=== PATIENT | female | born 1985 ===

== ENCOUNTER 2018-03-05 10:23 | Emergency (ER) | payer SELFPAY ==
--- NOTE | 2018-03-05 12:27 | UC ---
Respiratory Complaint HPI - HPI Summary HPI Summary: 1 WEEK OF PERSISTENT COUGH. WAS INITIALLY DRY BUT YESTERDAY STARTED BRINGING UP SOME WHITE PHLEGM. HAS SOME CHEST CONGESTION BUT NO FEVER, SORE THROAT, EAR PAIN, NAUSEA/VOMITING. UP-TO-DATE VACCINATIONS. JUST MOVED HERE FOR POSITION OF [facility] [place] [facility]. - History of Current Complaint Chief Complaint: UCRespiratory Stated Complaint: RESP COMPLAINT Time Seen by Provider: 03/05/18 11:35 Hx Obtained From: Patient Hx Last Menstrual Period: 02/21/18 Onset/Duration: Gradual Onset, Lasting Days, Still Present Timing: Constant Severity Initially: Mild Severity Currently: Mild Pain Intensity: 0 Pain Scale Used: 0-10 Numeric Character: Cough: Productive Aggravating Factors: Nothing Alleviating Factors: Nothing Associated Signs And Symptoms: Negative: Dyspnea, Fever, Chills, Wheezing - Allergies/Home Medications Allergies/Adverse Reactions: Allergies Allergy/AdvReac Type Severity Reaction Status Date / Time No Known Allergies Allergy Verified 03/05/18 10:40 PMH/Surg Hx/FS Hx/Imm Hx Previously Healthy: Yes - Surgical History Surgical History: Yes Surgery Procedure, Year, and Place: [facility] - Family History Known Family History: Positive: Hypertension - Social History Alcohol Use: Occasionally Substance Use Type: None Smoking Status (MU): Never Smoked Tobacco Review of Systems Constitutional: Negative ENT: Negative Respiratory: Cough Cardiovascular: Negative Gastrointestinal: Negative All Other Systems Reviewed And Are Negative: Yes Physical Exam Triage Information Reviewed: Yes Appearance: Well-Appearing, No Pain Distress, Well-Nourished Vital Signs: Initial Vital Signs Temp 97.9 F 03/05/18 10:37 Pulse 75 03/05/18 10:37 Resp 16 03/05/18 10:37 BP 104/72 03/05/18 10:37 Pulse Ox 100 03/05/18 10:37 Vital Signs Reviewed: Yes Eyes: Positive: Conjunctiva Clear ENT: Positive: Hearing grossly normal, Pharynx normal, TMs normal Neck: Positive: Supple, Nontender, No Lymphadenopathy Respiratory Exam: Normal Cardiovascular Exam: Normal Abdomen Description: Positive: Soft Musculoskeletal: Positive: No Edema Neurological: Positive: Alert Psychological: Positive: Age Appropriate Behavior Skin: Negative: rashes UC Diagnostic Evaluation - Laboratory O2 Sat by Pulse Oximetry: 100 Respiratory Course/Dx - Differential Dx/Diagnosis Provider Diagnoses: ACUTE BRONCHITIS Discharge - Sign-Out/Discharge Documenting (check all that apply): Patient Departure - Discharge Plan Condition: Stable Disposition: HOME Prescriptions: Benzonatate CAP* [Tessalon CAP*] 1 - 2 cap PO TID PRN #30 cap PRN Reason: Cough predniSONE TAB* [Deltasone 20 MG TAB*] 40 mg PO DAILY #10 tab Patient Education Materials: Acute Bronchitis (ED) Referrals: [facility] @ [Outside] - If Needed Additional Instructions: YOUR SYMPTOMS ARE LIKELY VIRALLY MEDIATED AND SHOULD RESOLVE ON THEIR OWN WITH TIME. NO INDICATION FOR ANTIBIOTICS AT PRESENT. REST, HYDRATE, OTC MEDS NEEDED. WILL TREAT WITH PREDNISONE TO HELP WITH AIRWAY INFLAMMATION AND COUGH MEDICINE. SEEK FOLLOW-UP IF YOU ARE NOT IMPROVING OVER THE NEXT 1-2 WEEKS. CALL THE NUMBER BELOW FOR ASSISTANCE IN ESTABLISHING WITH A PCP An additional resource available to assist in finding the appropriate physician for your health care needs is the [facility] ([facility]). You may contact them by calling [phone]. - Billing Disposition and Condition Condition: STABLE Disposition: Home
== END 2018-03-05 12:30 | disposition home or self-care (01) ==
LOC: UCEAST 10:23
DX: J20.9 Acute bronchitis, unspecified (principal)
CPT/HCPCS: 99202; G0463

== ENCOUNTER 2018-03-16 11:37 | Emergency (ER) | payer OTHER ==
[2018-03-16 11:49] VITALS: BP 116/71
--- NOTE | 2018-03-16 12:06 | UC ---
Headache HPI - HPI Summary HPI Summary: IN ROOM NOTE: Patient is a 33 y/o F w/ c/o migraines at right sabianism onsetting five days ago. Hx of migraines for past 15 years. Patient was moving into an apartment five days ago, which she believes caused present Sx. She reports intense HAs in evening. She states she has been waking up with RITCHIE pain and numbness in RUE. Pain recedes in the morning after breakfast. HAs resume in the evening after dinner. Stopped taking medication, Sumaptriptan, yesterday as she was not experiencing relief from Sx. She had been taking medications after Sx onset five days ago initially. In room presently, patient states she has mild right temporal discomfort with slight numbness of her right arm. Patient states she has not been exposed to carbon monoxide to her knowledge. She denies N/V, chest pain, vision changes, difficulty swallowing, SOB. Father has diabetes, Mother has HTN. Never had to go to ED for migraines. Patient denies smoking, drinks alcohol occasionally. MD NOTE: 33 y/o F w/ chronic intermittent migraines; vital signs stable, normal blood pressure, no temperature. Current pain 2/10. Non-smoker. Occasional alcohol. Visit Hx noncontributory to present complaint. Home medication includes Sumatriptan. NURSE'S NOTE: pt c/o migraine starting last week. pt states she has for the past 3 days has migraine that goes away after breakfast and comes back after dinner and lasts the entire night. pt states she has pain to her head, rt shoulder and to rt finger tips. - History Of Current Complaint Chief Complaint: UCHeadabelén Stated Complaint: HEADACHE Time Seen by Provider: 03/16/18 11:53 Hx Obtained From: Patient Hx Last Menstrual Period: 02/21/18 Onset/Duration: Lasting Weeks - last week, Still Present Onset Of Symptoms: Still Present Currently Pain Is: Mild - 2/10 Pain Intensity: 2 Pain Scale Used: 0-10 Numeric - 2/10 Timing: Intermittent, Lasting: - RITCHIE resolves in morning after breakfast, returns at night after dinner and is present throughout the night. Character: Migraine Location of Headache: Other: - right sabianism Allevating Factor(s): Nothing Associated Signs And Symptoms: Positive: Other (Noted In Comments) - POSITIVE: right shoulder pain, right finger pain; NEGATIVE: N/V, chest pain, vision changes, difficulty swallowing, SOB - Allergies/Home Medications Allergies/Adverse Reactions: Allergies Allergy/AdvReac Type Severity Reaction Status Date / Time No Known Allergies Allergy Verified 03/16/18 11:49 Home Medications: Home Medications Sumatriptan Succ/Naproxen Sod [Sumatriptan/Naproxen Sodi 85-500 mg] 1 tab PO [History] PMH/Surg Hx/FS Hx/Imm Hx Respiratory History: Bronchitis Neurological History: Migraine - Surgical History Surgical History: Yes Surgery Procedure, Year, and Place: [facility] 2015 - Family History Known Family History: Positive: Hypertension - mother, Diabetes - father - Social History Alcohol Use: Occasionally Substance Use Type: None Smoking Status (MU): Never Smoked Tobacco Review of Systems Eyes: Other - NEGATIVE: VISION CHANGES ENT: Other - NEGATIVE: DIFFICULTY SWALLOWING Respiratory: Other - NEGATIVE: SOB Cardiovascular: Chest Pain - NEGATIVE: CHEST PAIN Gastrointestinal: Other - NEGATIVE: NAUSEA, VOMITING Neurological: Headache, Other - POSITIVE: RUE NUMBNESS All Other Systems Reviewed And Are Negative: Yes - Comments Additional Review of Systems Comments: POSITIVE: RITCHIE, RUE NUMBNESS NEGATIVE: N/V, CHEST PAIN, VISION CHANGES, DIFFICULTY SWALLOWING, SOB Physical Exam - Summary Physical Exam Summary: Appearance: The patient is well-appearing, is in no pain distress, and is well- nourished. Eyes: Conjunctiva are clear. ENT: The hearing is grossly normal, the pharynx is normal, and the TMs are normal. There is no muffled or hoarse voice. Neck: The neck is supple and there is no lymphadenopathy. Respiratory: The chest is nontender. The lungs are clear, there are normal breath sounds, and there is no respiratory distress. Cardiovascular: Heart is regular rate and rhythm. There is no murmur. Abdomen: The abdomen is soft and nontender. There is no organomegaly. Bowel sounds: present Musculoskeletal: Strength is intact. The patient moves all extremities. Neurological: The patient is alert. SLIGHT NUMBNESS AND TINGLING OVER DORSUM OF RIGHT HAND: NORMAL NEURO EXAM: FINGER TO NOSE IS NORMAL, ROMBERG NEGATIVE, FUNDI BENIGN, CRANIAL NERVES 2-12 INTACT. ALL EXTREMITY MOVEMENT INTACT. NO PAIN OVER TEMPORAL ARTERIES. NO NECK BRUITS. Psychological: The patient displays age appropriate behavior Skin: Negative for rashes. Triage Information Reviewed: Yes Vital Signs: Initial Vital Signs Temp 98.4 F 03/16/18 11:46 Pulse 67 03/16/18 11:46 Resp 18 03/16/18 11:46 BP 116/71 03/16/18 11:46 Pulse Ox 100 03/16/18 11:46 Vital Signs Reviewed: Yes Headache Course/Dx - Course Course Of Treatment: Medications have been included in the original chart and reviewed. Normal BP reading and no follow-up instructions required. Patient is a 33 y/o F w/ Hx of migraines. She has been having intermittent migrainous RITCHIE to right sabianism with numbness in right arm for the past five days in the evening. The RITCHIE resolves after breakfast. In the [facility], she has very mild right temporal discomfort with slight numbness of her right arm. She takes Sumatriptan. Patient has had migraines since 2002, right-sided more so than left. Her right arm has been involved in past. PE including neuro exam is completely normal. She has just moved here to start a job at [employer]. Dx of exacerbation of chronic migraine condition. I recommended to her a variety of ways to break this current cycle including: compazine, diphenhydramine, ibuprofen, acetaminophen, frequent meals, hydration, and dexamethasone. - Differential Dx/Diagnosis Provider Diagnoses: exacerbation of chronic migraine condition Discharge - Sign-Out/Discharge Documenting (check all that apply): Patient Departure - discharge All imaging exams completed and their final reports reviewed: No Studies - Discharge Plan Condition: Stable Disposition: HOME Prescriptions: Dexamethasone TAB* [Decadron TAB*] 4 mg PO DAILY #4 tab MDD 2 Prochlorperazine TAB* [Compazine Tab*] 10 mg PO Q8H #9 tab MDD 3 Patient Education Materials: Migraine Headache (ED) Referrals: [facility] [Outside] Jose Salgado MD [Medical Doctor] - Additional Instructions: PLEASE SEEK CARE AT THE EMERGENCY DEPARTMENT IF SYMPTOMS WORSEN OR IF NEW SYMPTOMS DEVELOP. FOLLOW UP WITH YOUR PRIMARY CARE PHYSICIAN. As we discussed, your diagnosis is exacerbation of your chronic migraine condition. This cycle needs to be broken through a number of different techniques including eating in the late afternoon if you wake up during the night, staying well-hydrated, stress reduction, and using [id number] medications including acetaminophen and ibuprofen. I have prescribed Compazine and a steroid, dexamethasone. Take the Compazine with the Benadryl, diphenhydramine. Also, you can take acetaminophen and ibuprofen at the same time. Take in the evening. Specifically take the Compazine and the dexamethasone and the diphenhydramine this evening prior to sleep. The Compazine and Benadryl will make you sleepy. You can take the acetaminophen and ibuprofen throughout the day as well as an hour before sleep. I have given you the name of a neurologist for follow up to prevent migraines in the future, and recommended that you go to the ED should your condition worsen or fail to resolve. FOR PAIN: Ibuprofen 400-600mg PLUS acetaminophen 500mg - 1000mg every 8 hours. Maximum is 3 doses a day. If this dosage is required for more than 5 days, you should re-check with your doctor. - Billing Disposition and Condition Condition: STABLE Disposition: Home - Attestation Statements Document Initiated by Micaela: Yes Documenting Scribe: Mundo Maloney Provider For Whom Micaela is Documenting (Include Credential): Zachary Martel MD Scribe Attestation: IMundo, scribed for Zachary Martel MD on 03/16/18 at 1251. Scribe Documentation Reviewed: Yes Provider Attestation: The documentation as recorded by the Mundo chatman accurately reflects the service I personally performed and the decisions made by me, Zachary Martel MD
== END 2018-03-16 12:59 | disposition home or self-care (01) ==
LOC: UCEAST 11:37
DX: G43.909 Migraine, unspecified, not intractable, without status migrainosus (principal)
CPT/HCPCS: 99212; G0463